=== PATIENT | male | born 1955 | race Caucasian/White ===

== ENCOUNTER 2023-01-25 08:38 | Emergency (ER) | payer OTHER ==
[~2023-01-25] VITALS: Ht 177.8 cm; Wt 120.2 kg
[2023-01-25] MEDS ORDERED: LOSARTAN POTASS50 MG (09:29)
[2023-01-25] MEDS ORDERED: NORVASC5 MG (09:29)
[2023-01-25] MEDS ORDERED: HYDROCHLOROTHIA25 MG (09:29)
== END 2023-01-25 11:46 | disposition home or self-care (01) ==
LOC: ER 08:38
DX: R42 Dizziness and giddiness (principal); Z91.013 Allergy to seafood; I10 Essential (primary) hypertension; F32.89 Other specified depressive episodes; D45 Polycythemia vera